=== PATIENT | female | born 1985 | race African-American/Black ===

== ENCOUNTER 2017-03-26 11:17 | Emergency (ER) | payer OTHER, MEDICAID ==
[2017-03-26 11:18] VITALS: BP 135/80; PULSE 111; RESP 16; TEMP 102.7; O2SAT 100
[2017-03-26 13:03] LABS: AUTOMATED NEUTROPHIL # 8.4 TH/MM3 (1.8-7.7); BASOPHIL # 0.1 TH/MM3 (0-0.2); BASOPHIL % 0.8 % (0.0-2.0); EOSINOPHIL % 0.1 % (0.0-4.0); HEMOGLOBIN 12.2 GM/DL (11.6-15.3); LYMPHOCYTE # 1.2 TH/MM3 (1.0-4.8); MEAN CELL VOLUME 89.9 FL (80.0-100.0); MEAN CORPUSCULAR HEMOGLOBIN 29.5 PG (27.0-34.0); MEAN CORPUSCULAR HGB CONC 32.9 % (32.0-36.0); MEAN PLATELET VOLUME 8.7 FL (7.0-11.0); MONO % 8.2 % (0.0-8.0); MONOCYTE # 0.9 TH/MM3 (0-0.9); NEUT % 79.9 % (16.0-70.0); PLATELET COUNT 323 TH/MM3 (150-450); RED BLOOD COUNT 4.12 MIL/MM3 (4.00-5.30); WHITE BLOOD COUNT 10.5 TH/MM3 (4.0-11.0)
[2017-03-26 13:11] LABS: AMORPHOUS SEDIMENT, URINE RARE; BACTERIA, URINE MANY /hpf; BILIRUBIN, URINE NEG (NEG); BLOOD, URINE MOD (NEG); GLUCOSE,URINE NEG (NEG); KETONE, URINE TRACE mg/dL (NEG); MUCUS URINE FEW /lpf (OCC); NITRITE,URINE NEG (NEG); SQUAMOUS EPITHELIAL CELL URINE 2 /hpf (0-5); URINE COLOR YELLOW (YELLW/STRAW); URINE LEUKOCYTE ESTERASE LARGE (NEG); WHITE BLOOD CELL CLUMPS OCC
[2017-03-26 13:19] LABS: ALBUMIN 3.1 GM/DL (3.4-5.0); AST (GOT) 16 U/L (15-37); BICARBONATE 22.6 MEQ/L (21.0-32.0); BLOOD UREA NITROGEN 7 MG/DL (7-18); CALCIUM 8.9 MG/DL (8.5-10.1); CHLORIDE 105 MEQ/L (98-107); CREATININE 1.03 MG/DL (0.50-1.00); GLOMERULAR FILTRATION RATE 76 ML/MIN (>89); GLUCOSE,RANDOM 162 MG/DL (74-106); LIPASE 93 U/L (73-393); SODIUM (NA) 138 MEQ/L (136-145)
[2017-03-26 13:20] LABS: ALT (GPT) 20 U/L (10-53)
[2017-03-26 13:23] LABS: ALKALINE PHOSPHATASE 73 U/L (45-117); TOTAL BILIRUBIN ADULT 0.3 MG/DL (0.2-1.0); TOTAL PROTEIN 7.3 GM/DL (6.4-8.2)
[2017-03-26 13:26] VITALS: BP 119/82; PULSE 95; TEMP 102.9; O2SAT 97
[2017-03-26] MEDS ORDERED: cefTRIAXone INJ 1,000 MG in SODIUM CHLORIDE 0.9% INJ 100 ML IV ONE (13:45)
[2017-03-26] MEDS ORDERED: SODIUM CHLOR 0.9% 1000 ML INJ 1,000 ML IV ONE (13:45)
[2017-03-26] MEDS ORDERED: KETOROLAC TROMETHAMINE 30 MG/ML (IVP) VIAL IV PUSH ONE (13:45)
--- NOTE | 2017-03-26 14:00 | PD ---
HPI Chief Complaint: Flank/Kidney Pain Time Seen by Provider: 13:04 Travel History International Travel<30 days: No Contact w/Intl Traveler<30days: No Traveled to known affect area: No History of Present Illness HPI So 31 year-old woman presents to the emergency department complaining of fever, flank pain. She states that she got sick with URI symptoms about 2 weeks ago. She had fever cough cold symptoms and was diagnosed with the flu. She states that she got better but over the past 4-5 days getting worse. Worsening chills fever abdominal pain flank pain and nausea. A little bit a dry cough. She is also had pain as well. She states that she is "a GI patient" because she had intractable abdominal pain one time thought to be related to gastroparesis. No history of abdominal surgeries. No history of kidney stones. She does endorse some urinary symptoms, but not dysuria per se. No other complaints. History Past Medical History Medical History: Denies Significant Hx LMP: 03/24/17 : 3 Para: 2 Social History Alcohol Use: Yes (occ) Tobacco Use: No Allergies-Medications (Allergen,Severity, Reaction): Coded Allergies: acetaminophen (Verified Allergy, Severe, N/V HOT FLASHES, ITCHING, 03/26/17 ) oxycodone (Verified Allergy, Severe, N/V HOT FLASHES, ITCHING, 03/26/17) propoxyphene (Verified Allergy, Severe, ITCHING, N/V, HOT FLASHES, 03/26/17 ) metoclopramide (Verified Allergy, Unknown, Emotional and anxious, 03/26/17) Reported Meds & Prescriptions Reported Meds & Active Scripts Active No Active Prescriptions or Reported Medications Review of Systems Except as stated in HPI: all other systems reviewed are Neg Physical Exam Narrative GENERAL: 31-year-old, generally well-appearing, no acute distress. SKIN: Focused skin assessment warm/dry. HEAD: Atraumatic. Normocephalic. EYES: Pupils equal and round. No scleral icterus. No injection or drainage. ENT: No nasal bleeding or discharge. Mucous membranes pink and moist. NECK: Trachea midline. No JVD. CARDIOVASCULAR: Regular rate and rhythm. No murmur appreciated. RESPIRATORY: No accessory muscle use. Clear to auscultation. Breath sounds equal bilaterally. GASTROINTESTINAL: Abdomen soft, non-tender, nondistended. Mild left-sided CVA tenderness to percussion. MUSCULOSKELETAL: No obvious deformities. No edema. NEUROLOGICAL: Awake and alert. No obvious cranial nerve deficits. Motor grossly within normal limits. Normal speech. PSYCHIATRIC: Appropriate mood and affect; insight and judgment normal. Data Data Last Documented VS Vital Signs Date Time Temp Pulse Resp B/P (MAP) Pulse Ox O2 Delivery O2 Flow Rate FiO2 03/26/17 13:26 102.9 95 119/82 (94) 97 Room Air 03/26/17 11:18 16 Orders Orders Complete Blood Count With Diff (03/26/17 11:29) Comprehensive Metabolic Panel (03/26/17 11:29) Lipase (03/26/17 11:29) Urinalysis - C+S If Indicated (03/26/17 11:29) Ed Urine Pregnancytest Poc (03/26/17 11:29) Urine Culture (03/26/17 11:50) Iv Access Insert/Monitor (03/26/17 13:34) Ceftriaxone Inj (Rocephin Inj) (03/26/17 13:45) Ketorolac Inj (Toradol Inj) (03/26/17 13:45) Ct Abd/Pel W/O Iv Contrast (03/26/17 ) Influenzae A/B Antigen (03/26/17 13:38) Sodium Chlor 0.9% 1000 Ml Inj (Ns 1000 M (03/26/17 13:45) Labs Laboratory Tests Test 03/26/17 11:50 White Blood Count 10.5 TH/MM3 Red Blood Count 4.12 MIL/MM3 Hemoglobin 12.2 GM/DL Hematocrit 37.0 % Mean Corpuscular Volume 89.9 FL Mean Corpuscular Hemoglobin 29.5 PG Mean Corpuscular Hemoglobin Concent 32.9 % Red Cell Distribution Width 14.0 % Platelet Count 323 TH/MM3 Mean Platelet Volume 8.7 FL Neutrophils (%) (Auto) 79.9 % Lymphocytes (%) (Auto) 11.0 % Monocytes (%) (Auto) 8.2 % Eosinophils (%) (Auto) 0.1 % Basophils (%) (Auto) 0.8 % Neutrophils # (Auto) 8.4 TH/MM3 Lymphocytes # (Auto) 1.2 TH/MM3 Monocytes # (Auto) 0.9 TH/MM3 Eosinophils # (Auto) 0.0 TH/MM3 Basophils # (Auto) 0.1 TH/MM3 CBC Comment DIFF FINAL Differential Comment Urine Color YELLOW Urine Turbidity HAZY Urine pH 6.0 Urine Specific [place] 1.013 Urine Protein TRACE mg/dL Urine Glucose (UA) NEG mg/dL Urine Ketones TRACE mg/dL Urine Occult Blood MOD Urine Nitrite NEG Urine Bilirubin NEG Urine Urobilinogen 2.0 MG/DL Urine Leukocyte Esterase LARGE Urine RBC 14 /hpf Urine WBC 88 /hpf Urine WBC Clumps OCC Urine Squamous Epithelial Cells 2 /hpf Urine Amorphous Sediment RARE Urine Bacteria MANY /hpf Urine Mucus FEW /lpf Microscopic Urinalysis Comment CULTURE INDICATED Blood Urea Nitrogen 7 MG/DL Creatinine 1.03 MG/DL Random Glucose 162 MG/DL Total Protein 7.3 GM/DL Albumin 3.1 GM/DL Calcium Level 8.9 MG/DL Alkaline Phosphatase 73 U/L Aspartate Amino Transf (AST/SGOT) 16 U/L Alanine Aminotransferase (ALT/SGPT) 20 U/L Total Bilirubin 0.3 MG/DL Sodium Level 138 MEQ/L Potassium Level 3.3 MEQ/L Chloride Level 105 MEQ/L Carbon Dioxide Level 22.6 MEQ/L Anion Gap 10 MEQ/L Estimat Glomerular Filtration Rate 76 ML/MIN Lipase 93 U/L [facility] Medical Decision Making Medical Screen Exam Complete: Yes Emergency Medical Condition: Yes Interpretation(s) CBC is unremarkable. CMP overall unremarkable. Creatinine 1.03. Glucose 162. Lipase normal. UA is remarkable for pyuria. CT abdomen and pelvis: Negative. Physiologic free fluid. Differential Diagnosis Renal lithiasis, influenza, pyelonephritis, other Narrative Course Medical decision-making 31-year-old with flank pain-Versed initial pyelonephritis. Looks overall well. She has a COUGH cold symptoms as well. She's really worried about her abdominal pain. Pain seems a little bit out of proportion, may reflect the patient's pain tolerance, some concern for kidney stone. We'll check CT imaging , IV fluids, antibiotics, reassess. Diagnosis Primary Impression: Pyelonephritis Additional Instructions: Take antibiotics as prescribed. Use ibuprofen as needed for pain. Follow-up with her primary doctor in the next 2-4 days. Return to the emergency department for any new or worsening symptoms. Med/Other Pt SpecificInfo: Prescription(s) given Scripts Cephalexin (Keflex) 500 Mg Capsule 500 MG PO TID for Infection for 14 Days, CAP 0 Refills Prov: Babak Lomeli MD 03/26/17 Disposition: 01 DISCHARGE HOME Condition: Stable Babak Lomeli MD Mar 26, 2017 14:00
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
[2017-03-26] MEDS ORDERED: CEPH-460 PO (15:32)
== END 2017-03-26 16:48 | disposition home or self-care (01) ==
LOC: NEPD 11:17
DX: N12 Tubulo-interstitial nephritis, not specified as acute or chronic (principal); B96.20 Unspecified Escherichia coli [E. coli] as the cause of diseases classified elsewhere; R05 Cough
CPT/HCPCS: 74176; 80053; 81001; 83690; 84703; 85025; 87077; 87086; 87186; 87804; 96374; 96375; 99285; J0696; J1885; J7030

== ENCOUNTER 2017-06-19 09:04 | Emergency (ER) | payer OTHER, MEDICAID ==
[~2017-06-19] VITALS: Ht 154.9 cm; Wt 65.0 kg
[~2017-06-19 09:04] MED LIST: CEPH-460 PO
[2017-06-19 09:07] VITALS: BP 122/78; PULSE 82; RESP 16; TEMP 98.2; O2SAT 100
[2017-06-19] MEDS ORDERED: METHOCARBAMOL 500 MG TAB PO ONE (09:30)
[2017-06-19] MEDS ORDERED: traMADol HCL 50 MG TAB PO ONE (09:30)
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
[2017-06-19] MEDS ORDERED: ROBA500T PO (11:42)
[2017-06-19] MEDS ORDERED: IBUP1TAB7 PO (11:42)
== END 2017-06-19 12:08 | disposition home or self-care (01) ==
LOC: NEPD 09:04
DX: S00.83XA Contusion of other part of head, initial encounter (principal); S16.1XXA Strain of muscle, fascia and tendon at neck level, initial encounter; S09.90XA Unspecified injury of head, initial encounter; J45.909 Unspecified asthma, uncomplicated; F32.9 Major depressive disorder, single episode, unspecified; Y04.2XXA Assault by strike against or bumped into by another person, initial encounter; Y07.01 Husband, perpetrator of maltreatment and neglect; Z72.0 Tobacco use; Z88.6 Allergy status to analgesic agent
CPT/HCPCS: 70450; 70486; 72125; 99283